=== PATIENT | female | born 1950 | race Hispanic/Latino ===

== ENCOUNTER → 2018-04-19 | Day surgery (SDC) | payer MEDICARE ==
[~2018-04-19] MED LIST: ANASTROZOLE1 MG PO; ATORVASTATIN CA20 MG PO; CALCIUM CARBONATE PO; JANUMET PO; LIDOCAINE HCL 2% LOCAL INJ 5 ML SDV VIAL INJ ONE; METFORMIN PO; MIDAZOLAM HCL 2 MG/2 ML VIAL ONE; PIOGLITAZONE PO; PROPOFOL IV EMULSION 10 MG/ML 20 ML VIAL ONE; SIMETHICONE 40 MG/0.6 ML BTL ONE
--- OUTSIDE RECORDS SUMMARY | 2018-04-19 08:02 | XMS REPORT | Summary of Care ---
Author Author [facility] Organization [facility] Address Unknown Phone Unavailable Encounter HQ Darrius_anjelica(SURENDRA) [id number] Date(s): 01/06/17 - 01/07/[address] [facility] [address] [place] [address]- Discharge Disposition: Home or Self Care Attending Physician: Sincere Yoder MD Admitting Physician: Sincere Yoder MD Referring Physician: Sincere Yoder MD Vital Signs 1 2 3 Most recent to oldest [Reference Range]: 121.92 cm (01/05/17 9:17 AM) Height 98.2 DegF (01/07/17 2:00 PM) 98.2 DegF (01/07/17 8:05 AM) 98.1 DegF (01/06/17 11:49 PM) Temperature Oral [96.4-99.1 DegF] 105/64 mmHg (01/07/17 2:00 PM) 114/72 mmHg (01/07/17 8:05 AM) 117/66 mmHg (01/06/17 11:49 PM) Blood Pressure [90-140/60-90 mmHg] 16 BRMIN (01/07/17 2:00 PM) 16 BRMIN (01/07/17 8:05 AM) 18 BRMIN (01/06/17 3:50 PM) Respiratory Rate [14-20 BRMIN] 78 bpm (01/07/17 2:00 PM) 69 bpm (01/07/17 8:05 AM) 77 bpm (01/06/17 11:49 PM) Peripheral Pulse Rate [60-100 bpm] 96.818 kg (01/05/17 9:17 AM) Weight 65.13 m2 (01/05/17 9:17 AM) Body Mass Index Problem List Condition Effective Dates Status Health Status Informant Diabetes(Confirmed) Resolved Hx of Active osteoarthritis(Confi rmed) H/O Active osteoporosis(Confirm ed) Hypercholesterolemia Active (Confirmed) Asthma(Confirmed) Resolved Allergies, Adverse Reactions, Alerts Substance Reaction Severity Status ibuprofen Active Medications acetaminophen (ANES) (ANES) Route: IV, Drug form: INJ, Start date: 01/06/17 9:46:00 CDT, Stop date: 01/06/17 10:46:00 CDT Start Date: 01/06/17 Stop Date: 01/06/17 Status: Completed albuterol (ANES) Route: IV, Drug form: AERO/A, ONCE, Stop date: 01/06/17 10:27:00 CDT Start Date: 01/06/17 Stop Date: 01/06/17 Status: Completed ANES fentaNYL 25 microgram, 0.5 mL, Route: IVP, Drug form: INJ, Q5Min, Dosing Weight 96.818, k g, PRN Pain Score 4-6, Priority: Routine, Start date: 01/06/17 9:53:00 CDT, Dura tion: 4 doses or times, Stop date: Limited # of times Notes: (Same as: Sublimaze) Preservative free. Start Date: 01/06/17 Stop Date: 01/06/17 Status: Discontinued ANES flumazenil 0.2 mg, 2 mL, Route: IVP, Drug form: INJ, PRN, Dosing Weight 96.818, kg, PRN [place] zodiazepine Reversal, Initial dose, Start date: 01/06/17 9:53:00 CDT, Duration: 30 day, Stop date: 02/05/17 9:52:00 CDT Notes: (Same as: Romazicon) Start Date: 01/06/17 Stop Date: 01/06/17 Status: Discontinued ANES hydrALAZINE 10 mg, 0.5 mL, Route: IVP, Drug form: INJ, Q20Min, Dosing Weight 96.818, kg, PRN Elevated BP, Start date: 01/06/17 9:53:00 CDT, Duration: 2 doses or times, Stop date: Limited # of times Start Date: 01/06/17 Stop Date: 01/06/17 Status: Discontinued ANES HYDROmorphone 0.5 mg, 0.5 mL, Route: IVP, Drug form: INJ, Q5Min, Dosing Weight 96.818, kg, PRN Pain Score 7-10, Start date: 01/06/17 12:53:00 CDT, Duration: 4 doses or times, Stop date: Limited # of times Notes: Same as: Dilaudid Start Date: 01/06/17 Stop Date: 01/06/17 Status: Discontinued ANES meperidine 12.5 mg, 0.5 mL, Route: IVP, Drug form: INJ, Q30Min, Dosing Weight 96.818, kg, P RN Other -See Comment, For shivering, Start date: 01/06/17 9:53:00 CDT, Duration : 2 doses or times, Stop date: Limited # of times Notes: (Same as: Demerol) "Use Precaution in Elderly, Seizure disorders, and Re nal impairment" Start Date: 01/06/17 Stop Date: 01/06/17 Status: Discontinued ANES metoprolol 1 mg, 1 mL, Route: IVP, Drug form: INJ, Q5Min, Dosing Weight 96.818, kg, PRN Oth er -See Comment, Start date: 01/06/17 9:53:00 CDT, Duration: 5 doses or times, S top date: Limited # of times Notes: (Same as: Lopressor)Push over 2 minutes Start Date: 01/06/17 Stop Date: 01/06/17 Status: Discontinued ANES morphine Sulfate 4 mg, 1 mL, Route: IVP, Drug form: SOLN, Q5Min, Dosing Weight 96.818, kg, PRN Pa in Score 7-10, Start date: 01/06/17 9:53:00 CDT, Duration: 3 doses or times, Sto p date: Limited # of times Notes: (Same as: MORPhine Sulfate) Start Date: 01/06/17 Stop Date: 01/06/17 Status: Discontinued ANES naloxone 0.1 mg, 0.25 mL, Route: SUB-Q, Drug form: INJ, Q6H, Dosing Weight 96.818, kg, VT N Itching, Start date: 01/06/17 9:53:00 CDT, Duration: 30 day, Stop date: 9:52:00 CDT Notes: Same as Narcan Start Date: 01/06/17 Stop Date: 01/06/17 Status: Discontinued ANES naloxone 0.4 mg, 1 mL, Route: IVP, Drug form: INJ, Q2MIN, Dosing Weight 96.818, kg, PRN N arcotic Reversal, Start date: 01/06/17 9:53:00 CDT, Duration: 8 doses or times, Stop date: Limited # of times Notes: Same as Narcan Start Date: 01/06/17 Stop Date: 01/06/17 Status: Discontinued ANES ondansetron 4 mg, 2 mL, Route: IVP, Drug form: INJ, ONCE, Dosing Weight 96.818, kg, PRN Naus ea & Vomiting, Start date: 01/06/17 9:53:00 CDT Notes: (Same as: Shorty) MEDICATION WASTE Product Size: 4 mgProduct Was michelle: ___ mg Start Date: 01/06/17 Stop Date: 01/06/17 Status: Discontinued atorvastatin 80 mg oral tablet 80 mg=1 tab, PO, Bedtime, # 30 tab, 0 Refill(s) Start Date: 01/05/17 Status: Ordered BD Normal Saline Flush 10 mL, Route: IV, Drug Form: INJ, PRN, PRN Line Flush, Start date: 01/06/17 6:00 :00 CDT, Duration: 30 day, Stop date: 02/05/17 5:59:00 CDT Notes: (Same as: BD Posiflush) Start Date: 01/06/17 Stop Date: 01/07/17 Status: Discontinued buffered lidocaine 1% INJ 0.1 mL, Route: INTRADERM, Drug Form: SOLN, Dosing Weight 96.818, kg, ONCALL, Sta rt date: 01/06/17 7:00:00 CDT, Duration: 1 doses or times Notes: Ingredients: 2 ml lidocaine 1% inj , 0.2ml sodium bicarbonate 8.4% inj total volume=2.2ml Refrigerate: 14 days Room temp: 7 days Start Date: 01/06/17 Stop Date: 01/06/17 Status: Completed ceFAZolin (ANES) Route: IV, Drug form: INJ, ONCE, Stop date: 01/06/17 9:57:00 CDT Start Date: 01/06/17 Stop Date: 01/06/17 Status: Completed ceFAZolin + sodium chloride 0.9% 100 mL INJ (for IV set) 100 mL 2 gm, Route: IVPB, PRE OP, Start date: 01/06/17 6:00:00 CDT, Duration: 1 doses o r times, Stop date: 01/06/17 18:00:00 CDT, ABX Indication: Surgical Prophylaxis Notes: (Same As: Merline Crandall) MEDICATION WASTE Product Size: 1000 mgP roduct Wasted: _0__ mg Start Date: 01/06/17 Stop Date: 01/07/17 Status: Discontinued dexamethasone (ANES) Route: IV, Drug form: INJ, ONCE, Stop date: 01/06/17 10:17:00 CDT Start Date: 01/06/17 Stop Date: 01/06/17 Status: Completed fentaNYL (ANES) Route: IV, Drug form: INJ, ONCE, Stop date: 01/06/17 10:17:00 CDT Start Date: 01/06/17 Stop Date: 01/06/17 Status: Completed furosemide 40 mg oral tablet 40 mg=1 tab, PO, Daily, 0 Refill(s) Start Date: 01/05/17 Status: Ordered glycopyrrolate (ANES) Route: IV, Drug form: INJ, ONCE, Stop date: 01/06/17 10:42:00 CDT Start Date: 01/06/17 Stop Date: 01/06/17 Status: Completed Lactated Ringers 1,000 mL 1,000 mL, Rate: 25 ml/hr, Infuse over: 40 hr, Route: IV, Dosing Weight 96.818 kg , Total Volume: 1,000, Start date: 01/06/17 6:08:00 CDT, Duration: 30 day, Stop date: 02/05/17 6:07:00 CDT Start Date: 01/06/17 Stop Date: 01/06/17 Status: Discontinued lidocaine (ANES) Route: IV, Drug form: INJ, ONCE, Stop date: 01/06/17 10:17:00 CDT Start Date: 01/06/17 Stop Date: 01/06/17 Status: Completed metFORMIN 500 mg oral tablet 500 mg=1 tab, PO, Bedtime, 0 Refill(s) Start Date: 01/05/17 Status: Ordered midazolam (ANES) Route: IV, Drug form: SOLN, ONCE, Stop date: 01/06/17 10:17:00 CDT Start Date: 01/06/17 Stop Date: 01/06/17 Status: Completed montelukast 10 mg oral tablet 20 mg=2 tab, PO, Daily, 0 Refill(s) Start Date: 01/05/17 Status: Ordered morphine Sulfate 4 mg, 1 mL, Route: IVP, Drug form: SOLN, Q4H, Dosing Weight 96.818, kg, PRN Pain Score 7-10, Start date: 01/06/17 12:15:00 CDT, Duration: 30 day, Stop date: 12:14:00 CDT Notes: (Same as: MORPhine Sulfate) Start Date: 01/06/17 Stop Date: 01/07/17 Status: Discontinued morphine Sulfate (ANES) Route: IV, Drug form: INJ, ONCE, Stop date: 01/06/17 10:22:00 CDT Start Date: 01/06/17 Stop Date: 01/06/17 Status: Completed neostigmine (ANES) Route: IV, Drug form: INJ, ONCE, Stop date: 01/06/17 10:42:00 CDT Start Date: 01/06/17 Stop Date: 01/06/17 Status: Completed [place] 5/325 oral tablet 2 tab, Route: PO, Drug Form: TAB, Dosing Weight 96.818, kg, Q4H, PRN Pain Score 4-6, Start date: 01/06/17 12:16:00 CDT, Duration: 30 day, Stop date: 02/05/17 12 :15:00 CDT Notes: (Same as: [place] 325/5) Do not exceed 4gm/day of acetaminophen. Start Date: 01/06/17 Stop Date: 01/07/17 Status: Discontinued [place] 5/325 oral tablet 2 tab, PO, Q4H, PRN for pain, X 7 day, # 40 tab, 0 Refill(s), given to patient Start Date: 01/07/17 Stop Date: 01/14/17 Status: Ordered omeprazole 20 mg oral enteric coated tablet 20 mg=1 tab, PO, Daily, 0 Refill(s) Start Date: 01/05/17 Status: Ordered ondansetron (ANES) Route: IV, Drug form: INJ, ONCE, Stop date: 01/06/17 10:17:00 CDT Start Date: 01/06/17 Stop Date: 01/06/17 Status: Completed propofol (ANES) Route: IV, Drug form: INJ, ONCE, Stop date: 01/06/17 10:17:00 CDT Start Date: 01/06/17 Stop Date: 01/06/17 Status: Completed rocuronium (ANES) Route: IV, Drug form: INJ, ONCE, Stop date: 01/06/17 10:17:00 CDT Start Date: 01/06/17 Stop Date: 01/06/17 Status: Completed sodium chloride 0.9% 1000 ml INJ (ANES) Route: IV, Total Volume: 1,000, Start date: 01/06/17 9:22:00 CDT, Stop date: 10:22:00 CDT Start Date: 01/06/17 Stop Date: 01/06/17 Status: Completed Sodium Chloride 0.9% IV 25 mL, Route: IV, Start date: 01/06/17 6:00:00 CDT, Duration: 30 day, Stop date: 02/05/17 5:59:00 CDT, PRN Line Flush Start Date: 01/06/17 Stop Date: 01/07/17 Status: Discontinued succinylcholine (ANES) Route: IV, Drug form: INJ, ONCE, Stop date: 01/06/17 10:17:00 CDT Start Date: 01/06/17 Stop Date: 01/06/17 Status: Completed Zofran 4 mg, 2 mL, Route: IVP, Drug form: INJ, Q4H, Dosing Weight 96.818, kg, PRN Nause a, Start date: 01/06/17 12:16:00 CDT, Duration: 30 day, Stop date: 02/05/17 12:1 5:00 CDT Notes: (Same as: Zofran) MEDICATION WASTE Product Size: 4 mgProduct Was michelle: ___ mg Start Date: 01/06/17 Stop Date: 01/07/17 Status: Discontinued Zofran 4 mg oral tablet 4 mg=1 tab, PO, Q4H, PRN Nausea/Vomiting, # 10 tab, 0 Refill(s), given to josef hobbs Start Date: 01/07/17 Stop Date: 01/15/17 Status: Ordered Results ELECTROLYTES Most recent to 1 oldest [Reference Range]: Sodium Lvl [135-145 138 mEq/L mEq/L] (01/06/17 6:11 AM) Potassium Lvl 4.1 mEq/L [3.5-5.1 mEq/L] (01/06/17 6:11 AM) SPECIAL CHEMISTRY Most recent to 1 oldest [Reference Range]: Hgb A1C [<=5.6 %] 7.5 % *HI* (01/06/17 6:11 AM) HEMATOLOGY Most recent to 1 oldest [Reference Range]: Hgb [12.0-16.0 g/dL] 12.8 g/dL (01/06/17 6:11 AM) Hct [36.0-48.0 %] 39.0 % (01/06/17 6:11 AM) Immunizations Given and Recorded Vaccine Date Status Refusal Reason pneumococcal 13-valent vaccine 01/07/17 Given Procedures Procedure Date Related Diagnosis Body Site Anterior repair Appendectomy Hysterectomy1 Vein procedure 1with bilateral oophorectomy Social History Social History Type Response Substance Abuse Use: None. Alcohol Never Smoking Status Never smoker; Exposure to Tobacco Smoke None; Cigarette Smoking Last 365 Days No; Reg Smoking Cessation Counseling No Assessment and Plan No data available for this section
--- OUTSIDE RECORDS SUMMARY | 2018-04-19 08:03 | XMS REPORT ---
Author Author [facility] Address Unknown Phone Unavailable Care Team Providers Care [facility] Attendant Name Role Phone Unavailable Unavailable Payers Payer Name Policy Type Policy Number Effective Date Expiration Date Problems This patient has no known problems. Allergies, Adverse Reactions, Alerts Allergy Name Allergy Type Status Severity Reaction(s) Onset Date Inactive Date Treating Clinician Comments No Known Allergies DA Active U 2016-01-22 00:00:00 Medications This patient has no known medications. Encounters Start Date/Time End Date/Time Encounter Type Admission Type Attending Clinicians [facility] Facility Care Department Encounter ID [id number] 01:09:12 2017-09-11 01:09:12 Emergency [facility] [id number] 2017-09-10 22:53:17 2017-09-10 22:53:17 Emergency [facility] [id number] 2017-09-10 21:54:51 2017-09-10 21:54:51 Emergency [facility] [id number]
[2018-04-19 09:15] LABS: BASOPHILS % 0.5 % (0.0-1.0); EOSINOPHILS # (AUTO) 0.2 (0.0-0.4); HEMATOCRIT 39.9 % (34.2-44.1); HEMOGLOBIN 12.8 g/dL (12.0-16.0); LYMPHOCYTES # (AUTO) 2.2 (1.0-3.2); LYMPHOCYTES % 28.8 % (18.0-39.1); MEAN CORPUSCULAR HEMOGLOBIN 27.7 pg (28-32); MEAN CORPUSCULAR HGB CONC 32.1 g/dL (31-35); MEAN CORPUSCULAR VOLUME 86.4 fL (81-99); MONOCYTES # (AUTO) 0.5 (0.2-0.8); MONOCYTES % 6.9 % (4.4-11.3); NEUTROPHILS # (AUTO) 4.7 (2.1-6.9); NEUTROPHILS % 60.4 % (38.7-80.0); PLATELET COUNT 162 x10e3/uL (140-360); RED BLOOD COUNT 4.62 x10e6/uL (3.6-5.1); RED CELL DISTRIBUTION WIDTH 15.2 % (11.7-14.4)
[2018-04-19 11:22] VITALS: BP 164/84
== END | disposition home or self-care (01) ==
LOC: OR 07:59
PROVIDERS: ATTEND Internal Medicine
DX: K92.1 Melena (principal); E11.9 Type 2 diabetes mellitus without complications; K63.5 Polyp of colon; K64.0 First degree hemorrhoids; C50.911 Malignant neoplasm of unspecified site of right female breast; J45.909 Unspecified asthma, uncomplicated; I83.90 Asymptomatic varicose veins of unspecified lower extremity; Z88.6 Allergy status to analgesic agent; Z79.84 Long term (current) use of oral hypoglycemic drugs; Z68.41 Body mass index [BMI] 40.0-44.9, adult; Z90.11 Acquired absence of right breast and nipple
CPT/HCPCS: 36415; 45380; 82948; 85025; 93005; J2001; J2250

== ENCOUNTER 2020-01-07 05:48 | Observation (INO) | payer MEDICARE, OTHER ==
[2020-01-02 11:46] LABS: BASOPHILS # (AUTO) 0.1 (0.0-0.1); BASOPHILS % 0.6 % (0.0-1.0); EOSINOPHILS # (AUTO) 0.3 (0.0-0.4); EOSINOPHILS % 3.7 % (0.0-6.0); HEMATOCRIT 40.1 % (34.2-44.1); HEMOGLOBIN 12.6 g/dL (12.0-16.0); LYMPHOCYTES # (AUTO) 2.6 (1.0-3.2); MEAN CORPUSCULAR HEMOGLOBIN 26.8 pg (28-32); MEAN CORPUSCULAR HGB CONC 31.4 g/dL (31-35); MEAN CORPUSCULAR VOLUME 85.1 fL (81-99); MONOCYTES # (AUTO) 0.5 (0.2-0.8); MONOCYTES % 5.3 % (4.4-11.3); NEUTROPHILS # (AUTO) 5.5 (2.1-6.9); NEUTROPHILS % 61.1 % (38.7-80.0); PLATELET COUNT 202 x10e3/uL (140-360); RED BLOOD COUNT 4.71 x10e6/uL (3.6-5.1); RED CELL DISTRIBUTION WIDTH 15.1 % (11.7-14.4)
[2020-01-02 12:11] LABS: ANION GAP 17.5 mmol/L (8-16); BLOOD UREA NITROGEN 18 mg/dL (7-26); BUN/CREATININE RATIO 25 (6-25); CALCIUM 9.1 mg/dL (8.4-10.2); CARBON DIOXIDE 23 mmol/L (22-29); CHLORIDE 105 mmol/L (98-107); CREATININE, SERUM 0.73 mg/dL (0.57-1.11); EST GLOMERULAR FILTRATION RATE > 60 ML/MIN (60-); GLUCOSE 136 mg/dL (74-118); POTASSIUM 4.5 mmol/L (3.5-5.1); SODIUM 141 mmol/L (136-145)
--- NOTE | 2020-01-02 12:26 | Diagnostic Imaging Report ---
EXAMINATION: CHEST 2 VIEWS INDICATION: Pre-operative COMPARISON: None FINDINGS: LINES/TUBES:None LUNGS:The lungs are moderately inflated. No focal consolidation or pulmonary edema. 4 mm right midlung calcified granuloma. PLEURA:No pleural effusion or pneumothorax. MEDIASTINUM:The cardiomediastinal silhouette appears normal in size and shape. BONES/SOFT TISSUES:No acute osseous injury. ABDOMEN:No free air under the diaphragm. IMPRESSION: No focal pneumonia or pulmonary edema. Signed by: Kolton León MD on 01/02/2020 12:23 PM
[~2020-01-07] VITALS: Ht 144.8 cm; Wt 90.7 kg
[~2020-01-07 05:48] MED LIST changes: +ADVIL100 M1 PO; +CALCIUM PO; -LIDOCAINE HCL 2% LOCAL INJ 5 ML SDV VIAL INJ ONE; +LINZESS145 MCG PO; -MIDAZOLAM HCL 2 MG/2 ML VIAL ONE; +MONTELUKAST SOD10 MG PO; +PIOGLITAZONE-M1 EACH PO; +PRAVACHOL40 MG PO; -PROPOFOL IV EMULSION 10 MG/ML 20 ML VIAL ONE; -SIMETHICONE 40 MG/0.6 ML BTL ONE
[2020-01-07] MEDS ORDERED: DEXAMETHASONE SOD PHOS 10 MG/1 ML VIAL ONE (06:04)
[2020-01-07] MEDS ORDERED: GABAPENTIN 300 MG CAP ONE (06:04)
[2020-01-07] MEDS ORDERED: CEFAZOLIN SOD 1 GM/NS 50ML 100 ML IV ONE (06:04)
[2020-01-07] MEDS ORDERED: CELECOXIB 200 MG CAP ONE (06:04)
[2020-01-07] MEDS ORDERED: TRANEXAMIC ACID 1,000 MG/10 ML ML ONE (06:27)
[2020-01-07] MEDS ORDERED: VANCOMYCIN HCL 500 MG ONE ×2 (06:27→06:47)
[2020-01-07] MEDS ORDERED: SODIUM CHLORIDE 0.9% 500ML 500 ML ONE (06:47)
[2020-01-07] MEDS ORDERED: ROPIVACAINE 246.25 MG, EPINEPHRINE HCL 1:1000 1ML 0.5 MG, CLONIDINE HCL 0.08 MG, KETORO... INJ ONE ×5 (08:00)
[2020-01-07] MEDS ORDERED: KETOROLAC TROMETHAMINE 30 MG/ML VIAL IV PRN (09:15)
[2020-01-07] MEDS ORDERED: DOCUSATE SODIUM 100 MG CAP PO PRN (09:15)
[2020-01-07] MEDS: SODIUM CHLORIDE 0.9% 1000ML 1,000 ML IV SCH ×2 (09:15→19:15)
[2020-01-07] MEDS ORDERED: ACETAMINOPHEN 650 MG SUPP PR PRN (09:15)
[2020-01-07] MEDS ORDERED: DIPHENHYDRAMINE HCL INJ 50 MG/ML VIAL IV PRN (09:15)
[2020-01-07] MEDS ORDERED: ONDANSETRON HCL INJ 2MG/ML 2ML 2 MG/ML VIAL IV PRN (09:15)
[2020-01-07] MEDS ORDERED: FENTANYL CITRATE/PF 100MCG/2 ML INJ ONE ×2 (09:41→13:50)
--- NOTE | 2020-01-07 09:50 | Operative Report ---
DATE OF PROCEDURE: 01/07/2020 SURGEON: Aki Harris MD ATG ARCHITECT: Hernandez Wall, certified PA. PREOPERATIVE DIAGNOSIS: Osteoarthritis, left knee. SECONDARY DIAGNOSIS: Morbid obesity. POSTOPERATIVE DIAGNOSES: 1. Osteoarthritis, left knee. 2. Morbid obesity. PROCEDURE: Left total knee arthroplasty * added complexity secondary to BMI of 44. INDICATIONS: The patient is a 69-year-old lady who has end-stage arthritis in her left knee. She has failed conservative management and would like to proceed with definitive intervention. The risks and benefits of a knee replacement surgery have been discussed. The added challenges and risks for perioperative complications due to her body mass index of 44 have been thoroughly explained. She states that she has made reasonable effort to lose weight and has been unsuccessful. She accepts the added challenges and risks for complications and wishes to proceed. PROCEDURE IN DETAIL: The patient was brought to the operating room and placed under general anesthetic. She received prophylactic antibiotics, a regional block and tranexamic acid in the holding area. Her left lower extremity was prepped and draped in a sterile manner. Added time and personnel was necessary due to the patient's BMI of 44. A preoperative time-out was performed. The extremity was exsanguinated and a proximal tourniquet was inflated to 350 mmHg. An anterior incision with a medial parapatellar arthrotomy was performed. Care was taken to avoid developing of space in the subcutaneous adipose tissue. Clear synovial fluid was removed from the joint. Soft tissue releases were performed to bring the knee up into flexion with the patella everted. Meniscal remnants, marginal osteophytes in the cruciate ligaments were removed. A [employer] Swrve knee system were used. An extramedullary cutting guide was used to resect the proximal tibia. The tibial base plate was a size three. The central fin punch was impacted and attention was directed towards the distal femur. Added challenges for good exposure were encountered in the altered surgical field. An intramedullary cutting guide was used to resect the distal femur in 5 degrees of valgus and rotation referencing off a combination of landmarks including Whitesides line, the epicondylar axis, and the posterior condyles. The femoral component was a size four. Again, some challenges were encountered and having appropriate exposure. The anterior and posterior cuts were made. Trial reduction was performed. An 11 mm ultracongruent tibial insert provided appropriate soft tissue balancing in full extension and 90 degrees of flexion. The patella was resurfaced with a 29 mm x 9 mm patellar button. The thickness was checked before and after resurfacing and was right around 22 mm. Patellar tracking was noted to be concentric. The trial implants were then all removed. The knee was thoroughly irrigated with a shower tip pulsatile lavage. A 100 mL premixed pericapsular CL[place]ON injection was placed into the surrounding soft tissue. The components were cemented into place using a single mix of high viscosity Biomet cement preloaded with antibiotics. Care was taken to remove all extravasated cement. The wound was further irrigated while the cement cured. The arthrotomy was then closed after sprinkling 500 mg of vancomycin powder into the deep wound. The arthrotomy was closed with interrupted Ethibond stitches. The knee was put through flexion and extension to ensure a secure closure. The skin was carefully closed with subcuticular Vicryl and shala. Her skin was very thin. A sterile Aquacel bandage was applied. The patient was extubated and transported to the recovery room in stable condition. Blood loss was minimal. All needle and sponge counts were correct. Aki Harris MD DR/KATE /[id number]
--- NOTE | 2020-01-07 10:08 | Diagnostic Imaging Report ---
KNEE LEFT 1-2 VIEWS - 2 views HISTORY: Postop COMPARISON: None available. IMPRESSION: Surgical changes of recent total knee replacement. The prosthesis is intact. Alignment is anatomic. No fracture. Expected surgical changes include soft tissue and joint space gas. Signed by: Carlitos Niño MD on 01/07/2020 10:05 AM
--- OUTSIDE RECORDS SUMMARY | 2020-01-07 10:21 | XMS REPORT | Continuity of Care Document ---
Author Author [facility] t Organization [facility] Address 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 11 Active 09/10/[address] [facility] [place] [place] Diagnosis Active 2018-09-10 08:00:00 2018-12-26 09:34:00 Henrique Goodson INTRADUCTAL CARCINOM INTR ADUCTAL CARCINOM Active 08/01/[address] 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 Disease Active 2017-09-10 00:00:00 Har[place] [id number] - MALIG NEOPLM OF UPPER-OUTER QU C50.411 - MALIG NEOPLM OF UPPER-OUTER QU Active 01/05/2017 [facility] Ac tive 2017-01-05 00:01:00 2017-02-12 15:39:00 [facility] MALIGNANT NEOPLASM OF UPPER-OUTER QUADRA MALIGNANT NEOPLASM OF UPPER-OUTER QUADRA Active 01/05/2017 [facility] Diagnosis Active 2017-01-05 00:00:00 2017-02-15 15:02:00 [facility] Diabetes mellitus, new onset Diabetes mellitus, new onset Disease Active 2013-09-17 00:00:00 [facility] Diabetes mellitus Diabetes mellitus Disease Active 2013-09-17 00:00:00 [facility] S/P colonoscopy with polypectomy S/P colonoscopy with polypectom y Disease Active 2013-05-29 00:00:00 [facility] Tubular adenoma Tubular adenoma Disease Active 2013-05-29 00:00:00 [facility] Varicose veins Varicose veins Disease Active 2013-02-22 00:00:00 [facility] Abnormal CT scan, sigmoid colon Abnormal CT scan, sigmoid colon Dis ease Active 2012-10-12 00:00:00 [facility] BRBPR (bright red blood per rectum) BRBPR (bright red blood per rectum) Disease Active 2012-10-09 00:00:00 [facility] Edema Edema Disease Active 2012-09-21 00:00:00 [facility] Ear pain Ear pain Disease Active 2012-09-21 00:00:00 [facility] Infective otitis externa, unspecified Infective otitis exter na, unspecified Disease Active 2012-09-21 00:00:00 [facility] 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 Disease Active 2012-01-17 00:00:00 [facility] Preventative health care Preventative health care Disease Acti ve 2012-01-17 00:00:00 [facility] S/P excision of lipoma S/P excision of lipoma Disease Active 2011-10-14 00:00:00 [facility] 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 Disea se Active 2011-08-08 00:00:00 [facility] Dietary counseling Dietary counseling Disease Active 2011-06-17 00:00:0 0 [facility] Lipoma of flank Lipoma of flank Disease Active 2011-05-25 00:00:00 [facility] Obesity, Class III, BMI 40-49.9 (morbid obesity) Obesi ty, Class III, BMI 40-49.9 (morbid obesity) Disease Active 2011-05-25 00:00:00 [facility] Rectocele Rectocele Disease Active 2010-03-17 00:00:00 [facility] Vaginal atrophy Vaginal atrophy Disease Active 2009-03-03 00:00:00 [facility] Elevated blood pressure reading without diagnosis of h ypertension Elevated blood pressure reading without diagnosis of hypertension Disease Active 2007-10-30 00:00:00 [facility] Stool guaiac positive Stool guaiac positive Disease Active 11-27-07 00:00:00 [facility] Personal history of noncompliance with m edical treatment, presenting hazards to health Personal history of noncompliance with m edical treatment, presenting hazards to health Disease Active 2007-06-22 00:00:00 [facility] Female stress incontinence Female stress incontinence Disease Active 2007-06-06 00:00:00 [facility] Asthma (disorder) Asth ma (disorder) Resolved Problem 07/10/2019 [facility] Problem Resolved 2019-07-10 22:49:25 Jeaneth Goodson History of - osteoarthritis (context-dependent categor y) History of - osteoarthritis (context-dependent category) Active Problem 07/10/2019 [facility] Problem Active 2019-07-10 22:49:25 Henrique Goodson History of - musculoskeletal disease (context-dependen t category) History of - musculoskeletal disease (context-dependent category) Active Problem 07/10/2019 [facility] Problem Active 2019-07-10 22:49:25 [facility] Hypercholesterolemia (disorder) Hypercholesterolemia (disorder) Active Problem 07/10/2019 [facility] Problem Active 2019-07-10 22:49:25 Henrique Goodson 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 Active Diagnosis 11/20/2018 Danica Barajas Diagnosis Active 2018-11-20 03 :11:38 Henrique Goodson Vitamin D deficiency Adrienne min D deficiency Active Problem 11/20/2018 Danica Najam Problem Active 2018-11-20 03:11:38 [facility] Pain in left knee Pain in left knee Active Diagnosis 11/20/2018 Danica Nagreg Diagnosis Active 2018-11-20 03:11:38 [facility] Pain in right hand Pain in right hand Active Diagnosis 11/20/2018 Danica Najam Diagnosis Active 2018-11-20 03:11:38 [facility] Pain in right knee Pain in right knee Active Diagnosis 11/20/2018 Danica Najam Diagnosis Active 2018-11-20 03:11:38 [facility] [place] Pain of multiple sites Pain of multiple sites Active Diagnosis 11/20/2018 Danica Najam Diagnosis Active 2018-11-20 03 :11:38 [facility] Pain of left hand Pain of left hand Active Diagnosis 11/20/2018 Danica Nagreg Diagnosis Active 2018-11-20 03:11:38 Henrique Goodson INTRADUCTAL CARCINOMA IN SITU OF 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 [place] [place] Diagnosis Active 2018-08-14 11:15:00 [facility] Osteoporoses, postmenopausal Osteoporoses, postmenopausal Disease Active [facility] GERD (gastroesophageal reflux disease) GERD (gastroesophagea l reflux disease) Disease Active [facility] Hyperlipidemia Hyperlipidemia Disease Active [facility] Elevated CEA Elevated CEA Disease Active [facility] Elevated glucose Elevated glucose Disease Active [facility] Allergies, Adverse Reactions, Alerts Allergy Name Allergy Type Status Severity Reaction(s) Onset Date Inacti ve Date Treating Clinician Comments Source N.K.D.A. N.K.D.A. Active Info Not Available 2018-08-28 00:00:00 [facility] [place] No Known Allergies DA Active U 2016-01-22 00:00:00 [facility] ibuprofen ibuprofen Active Igormillie Goodson Family History Family Member Diagnosis Comments Start Date Stop Date Source Natural father [facility] Maternal aunt [facility] Natural mother [facility] Natural mother [facility]pert[facility] Other Hypothyroid [facility] Social History Social Habit Start Date Stop Date Quantity Comments Source Sex Assigned [facility] Social History 2017-01-05 14:39:03 2017-01-05 14:39:03 [facility] Alcohol intake 2015-03-18 00:00:00 2015-03-18 00:00:00 Current non-drinker of alcohol (finding) [facility] Smoking Status Start Date Stop Date Source Never smoker [facility] Medications Ordered Medication Name Filled Medication Name Start Date Stop Da te Current Medication? Ordering Clinician Indication Dosage Frequency Signature (SIG) Comments Components Source Atorvastatin Calcium 2018-11-20 03:11:38 Yes Danica Najam 1 tablet [facility] Metformin HCl 2018-11-20 03:11:38 Yes Danica Najam 1 tablet with a meal [facility] Anastrozole 2018-11-20 03:11:38 Yes Danica Najam 1 tablet [facility] Calcium 2018-11-20 03:11:38 Yes Danica Najam 1 ta blet with a meal [facility] Ergocalciferol 2018-09-11 00:00:00 Yes Danica Najam 1 capsule [facility] Meloxicam 2018-08-31 00:00:00 Yes Danica Najam 1 tab(s) with food as needed [facility] acetaminophen (TYLENOL) 500 mg tablet 2017-09-11 00:00:00 Yes Chronic midline thoracic back pain 500mg Take 1 tablet by mouth every 6 hours as needed for Pain. [facility] Ondansetron 4 MG Oral Tablet [Zofran] 2017-01-07 13:21:00 Y es 4 mg = 1 tab, PO, Q4H, PRN Nausea/Vomiting, # 10 tab, 0 Refill(s), given to patient [facility] Acetaminophen 325 MG / Hydrocodone Bitartrate 5 MG Oral Tabl et [Pocola 5/325] 2017-01-07 13:21:00 Yes 2 tab, PO, Q4H, PRN for pain, X 7 day, # 40 tab, 0 Refill(s), given to patient Isisor mary jane Goodson Hydromorphone 2017-01-06 17:53:00 No Notes: Same as: Dilaudid [facility] Zofran 2017-01-06 17:16:00 No Notes: (Same as: Zofran) MEDICATION WASTE Product Size: 4 mg Product Wasted: ___ mg [facility] Acetaminophen 325 MG / Hydrocodone Bitartrate 5 MG Oral Tabl et [Pocola 5/325] 2017-01-06 17:16:00 No Notes: (Same as: Pocola 325/5) Do not exceed 4gm/day of acetaminophen. [facility] nn Morphine 2017-01-06 17:15:00 No Not es: (Same as: MORPhine Sulfate) [facility] glycopyrrolate ([facility]) 2017-01-06 15:42:00 No Route: IV, Drug form: INJ, ONCE, Stop date: 01/06/17 10:42:00 CDT [facility] neostigmine (ANES) 2017-01-06 15:42:00 No Route: IV, Drug form: INJ, ONCE, Stop date: 01/06/17 10:42:00 CDT [facility] albuterol (ANES) 2017-01-06 15:27:00 No Route: IV, Drug form: AERO/A, ONCE, Stop date: 01/06/17 10:27:00 CDT [facility] morphine Sulfate ([facility]) 2017-01-06 15:22:00 No Route: IV, Drug form: INJ, ONCE, Stop date: 01/06/17 10:22:00 CDT [facility] dexamethasone ([facility]) 2017-01-06 15:17:00 No Route: IV, Drug form: INJ, ONCE, Stop date: 01/06/17 10:17:00 CDT [facility] rocuronium ([facility]) 2017-01-06 15:17:00 No Route: IV, Drug form: INJ, ONCE, Stop date: 01/06/17 10:17:00 [facility] succinyl[facility] ([facility]) 2017-01-06 15:17:00 No Route: IV, Drug form: INJ, ONCE, Stop date: 01/06/17 10:17:00 CDT [facility] midazolam ([facility]) 2017-01-06 15:17:00 No Route: IV, Drug form: SOLN, ONCE, Stop date: 01/06/17 10:17:00 [facility] fentaNYL ([facility]) 2017-01-06 15:17:00 No Route: IV, Drug form: INJ, ONCE, Stop date: 01/06/17 10:17:00 [facility]ocaine ([facility]) 2017-01-06 15:17:00 No Route: IV, Drug form: INJ, ONCE, Stop date: 01/06/17 10:17:00 CDT Cornel Goodson propofol (ANES) 2017-01-06 15:17:00 No Route: IV, Drug form: INJ, ONCE, Stop date: 01/06/17 10:17:00 CDT Cornel Goodson ondansetron ([facility]) 2017-01-06 15:17:00 No Route: IV, Drug form: INJ, ONCE, Stop date: 01/06/17 10:17:00 CDT Cornel Goodson ceFAZolin ([facility]) 2017-01-06 14:57:00 No Route: IV, Drug form: INJ, ONCE, Stop date: 01/06/17 9:57:00 CDT Wi polly Goodson Meperidine 2017-01-06 14:53:00 No Notes: (Same as: Demerol) "Use Precaution in Elderly, Seizure disorders, and Renal impairment" [facility] Naloxone 2017-01-06 14:53:00 No Notes: Same as Narcan [facility] Ondansetron 2017-01-06 14:53:00 No Notes: (Same as: Zofran) MEDICATION WASTE Product Size: 4 mg Product Wasted: ___ mg [facility] Fentanyl 2017-01-06 14:53:00 No Notes: (Same as: Sublimaze) Preservative free. [facility] Morphine 2017-01-06 14:53:00 No Not es: (Same as: MORPhine Sulfate) [facility] Flumazenil 2017-01-06 14:53:00 No Notes: (S sheryl as: Romazicon) [facility] Hydralazine 2017-01-06 14:53:00 No 10 mg, 0.5 mL, Route: IVP, Drug form: INJ, Q20Min, Dosing Weight 96.818, kg, PRN Elevated BP, Start date: 01/06/17 9:53:00 CDT, Duration: 2 doses or times, Stop date: Limited # of times [facility] Metoprolol 2017-01-06 14:53:00 No Notes: (Same as: Lopressor) Push over 2 minutes Henrique Goodson acetaminophen (MELISSAS) (ANES) 2017-01-06 14:46:00 No Route: IV, Drug form: INJ, Start date: 01/06/17 9:46:00 CDT, Stop date: 01/06/17 10:46:00 CDT [facility] sodium chloride 0.9% 1000 ml INJ (ANES) 2017-01-06 14:22:00 No Route: IV, Total Volume: 1,000, Start date: 01/06/17 9:22:00 CDT, Stop date: 01/06/17 10:22:00 CDT [facility] Lidocaine 2017-01-06 12:00:00 No Notes: Ingredients: 2 ml lidocaine 1% inj , 0.2ml sodium bicarbonate 8.4% inj total volume = 2.2ml Refrigerate: 14 days Room temp: 7 days [facility] Calcium Chloride 0.0014 MEQ/ML / Potassi um Chloride 0.004 MEQ/ML / Sodium Chloride 0.103 MEQ/ML / Sodium Lactate 0.028 MEQ/ML Injectable Solution 2017-01-06 11:08:00 No 1,000 mL, Rate: 25 ml/hr, Infuse over: 40 hr, Route: IV, Dosing Weight 96.818 kg, Total Volume: 1,000, Start date: 01/06/17 6:08:00 CDT, Duration: 30 day, Stop date: 02/05/17 6:07:00 CDT [facility] Sodium Chloride 0.9% IV 2017-01-06 11:00:00 No 25 mL, Route: IV, Start date: 01/06/17 6:00:00 CDT, Duration: 30 day, Stop date: 02/05/17 5:59:00 CDT, PRN Line Flush [facility] BD Normal Saline Flush 2017-01-06 11:00:00 No Notes: (Same as: BD Posiflush) [facility] ceFAZolin + sodium chloride 0.9% 100 mL INJ (for IV set) 100 mL 2017-01-06 11:00:00 No Notes: (Sa me As: Ancef, Kefzol) MEDICATION WASTE Product Size: 1000 mg Product Wasted: _0__ mg [facility] Furosemide 40 MG Oral Tablet 2017-01-05 14:24:00 Yes 40 mg = 1 tab, PO, Daily, 0 Refill(s) [facility] montelukast 10 mg oral tablet 2017-01-05 14:23:00 Yes 20 mg = 2 tab, PO, Daily, 0 Refill(s) [facility] atorvastatin 80 mg oral tablet 2017-01-05 14:22:00 Yes 80 mg = 1 tab, PO, Bedtime, # 30 tab, 0 Refill(s) [facility] omeprazole 20 mg oral enteric coated tablet 2017-01-05 14:22:00 Yes 20 mg = 1 tab, PO, Daily, 0 Refill(s) [facility] [place] Metformin hydrochloride 500 MG Oral Tablet 2017-01-05 14:21:00 Yes 500 mg = 1 tab, PO, Bedtime, 0 Refill(s) [facility] traMADol (ULTRAM) 50 mg tablet 2014-03-18 00:00:00 Yes DDD (degenerative disc disease), lumbar 50mg Take 1 tablet by m outh every 12 hours as needed for Pain. [facility] lactulose (CONSTULOSE) 10 gram/15 mL oral solution 2014-02 00:00:00 Yes Unspecified constipation Take 30 ml by mouth twice daily until bowel movement. [facility] omeprazole (PRILOSEC) 20 mg delayed release capsule 2013-04 00:00:00 Yes GERD (gastroesophageal reflux disease) 20mg QD Ta ke 1 capsule by mouth daily. [facility] simvastatin (ZOCOR) 40 mg tablet 2014-03-18 00:00:00 Yes HLD (hyperlipidemia) 40mg Take 1 tablet by mouth at bedtime nightly . [facility] cetirizine (ZYRTEC) 10 mg tablet 2014-02-07 00:00:00 Yes Environmental allergies 10mg QD Take 1 tablet by mouth daily. [facility] cyclobenzaprine (FLEXERIL) 10 mg tablet 2014-02-07 00:00:00 Yes Encounter for medication refill 10mg Take 1 tablet by m outh daily as needed for Muscle Spasms. [facility] piroxicam (FELDENE) 20 mg capsule 2014-02-07 00:00:00 Yes Encounter for medication refill 20mg QD Take 1 capsule by mouth daily. [facility] ergocalciferol (VITAMIN D2) 50,000 unit capsule 2014-01-02 0 0:00:00 Yes Vitamin D deficiency [id number] Take 1 capsule by mouth weekly. [facility] Mometasone (NASONEX) 50 mcg/actuation nasal spray 2014-01-02 00:00:00 Yes Post-Nasal Drip 100ug QD 2 Sprays by each nostril route daily. [facility] hydrocortisone 2.5 % topical cream 2013-10-16 00:00:00 Y es Dermatitis Q.5D Apply to affected area 2 times daily. [facility] metFORMIN (GLUCOPHAGE-XR) 500 mg ER extended release tablet 2013-09-17 00:00:00 Yes Diabetes mellitus 500mg QD Ta ke 1 tablet by mouth daily (with breakfast). [facility] blood glucose meter (PRECISION XTRA GLUCOMETER) 2013-09-17 0 0:00:00 Yes Diabetes mellitus, new onset Use as directed.. [facility] blood glucose (PRECISION XTRA TEST STRIPS) test strips 2013-09-17 00:00:00 Yes Diabetes mellitus Use 3 times a weeks. [facility] lancets 28 gauge 2013-09-17 00:00:00 Yes Diabetes mellitus USE 3 VECES POR SEMANA [facility] gabapentin (NEURONTIN) 300 mg capsule 2013-08-13 00:00:00 Yes Burning sensation of feet 300mg Take 1 capsule by mouth at bedtime night ly. [facility] OPTIVAR 0.05 % ophthalmic solution 2013-07-23 00:00:00 Yes PONGA 1 GOTA EN CADA JILL 2 VECES DIARIAMENTE. [facility] alendronate (FOSAMAX) 35 mg tablet 2013-05-29 00:00:00 Y es Osteopenia 35mg Take 1 tablet by mouth weekly. [facility] ibuprofen (MOTRIN) 800 mg tablet 2012-12-11 00:00:00 Yes Plantar fasciitis 800mg Take 1 tablet by jared th every 8 hours as needed for Pain. Label in French [facility] Immunizations Ordered Immunization Name Filled Immunization Name Date Status Comments Source PPV 23 Pneumococcal Polysaccaride 2014-03-18 00:00:00 Comp leted [facility] Influenza Vaccine 2011-05-25 00:00:00 Completed [facility] Influenza Vaccine 2010-03-24 00:00:00 Completed [facility] Vital Signs Vital Name Observation Time Observation Value Comments Source Height 2018-09-11 16:45:00 Henrique Goodson Diastolic (mm Hg) 2018-09-11 16:45:00 [facility] leida Goodson Systolic (mm Hg) 2018-09-11 16:45:00 I[facility] Mccordann Weight 2018-09-11 16:45:00 [facility] Height 2018-08-28 16:00:00 [facility] [place] Diastolic (mm Hg) 2018-08-28 16:00:00 [facility] Systolic (mm Hg) 2018-08-28 16:00:00 Igor rial [facility] Weight 2018-08-28 16:00:00 [facility] [place] Height 2018-08-14 18:00:00 144.78 cm [facility] [place] Heart Rate 2018-08-14 18:00:00 [facility] [place] Systolic (mm Hg) 2018-08-14 18:00:00 Igor rial [place] Diastolic (mm Hg) 2018-08-14 18:00:00 [facility] Height 2018-08-14 16:11:00 144.78 cm [facility] [place] Systolic (mm Hg) 2018-08-14 16:11:00 Igor rial [facility]zah Diastolic (mm Hg) 2018-08-14 16:11:00 Mem [facility] [place] Heart Rate 2018-08-14 16:11:00 [facility] Systolic (mm Hg) 2017-01-07 19:00:00 Igor rial [facility] Diastolic (mm Hg) 2017-01-07 19:00:00 Mem [facility] [place] Heart Rate 2017-01-07 19:00:00 [facility] [place] Respitory Rate 2017-01-07 19:00:00 [facility]ori [facility] [place] Temperature Oral (F) 2017-01-07 19:00:00 98.2 F [facility] Heart Rate 2017-01-07 13:05:00 [facility] [place] Temperature Oral (F) 2017-01-07 13:05:00 98.2 F [facility] Systolic (mm Hg) 2017-01-07 13:05:00 Igor rial [place] Diastolic (mm Hg) 2017-01-07 13:05:00 [facility] Respitory Rate 2017-01-07 13:05:00 [facility] Temperature Oral (F) 2017-01-07 04:49:00 98.1 F [facility] Heart Rate 2017-01-07 04:49:00 [facility] Systolic (mm Hg) 2017-01-07 04:49:00 Igor rial [facility] Diastolic (mm Hg) 2017-01-07 04:49:00 [facility] Respitory Rate 2017-01-06 20:50:00 [facility] [place] Weight 2017-01-05 14:17:00 [facility] Height 2017-01-05 14:17:00 121.92 cm [facility] BMI Calculated 2017-01-05 14:17:00 Constance Reyes Procedures Procedure Date / Time Performed [facility]forming [facility] Appendectomy [facility] Hysterectomy<sup>1</sup> Tin wahl [facility] Vein procedure [facility] Plan of Care Planned Activity Planned Date Details Comments Source [facility] Scheduled Test 2020-09-20 00:00:00 BREAST CANCER SCRE ENING [code = BREAST CANCER SCREENING] [facility] Scheduled Test 2020-01-23 00:00:00 INFLUENZA VACCINE [code = INFLUENZA VACCINE] [facility] Scheduled Test 2020-01-23 00:00:00 IMM Influenza Seas onal Jan to June (>/= 19 yrs) [code = IMM Influenza Seasonal Jan to June (>/= 19 yrs)] [facility] Scheduled Test 2018-05-03 00:00:00 Screening for lucila gnant neoplasm of colon (procedure) [code = 469401457] [facility] Scheduled Test 2014-10-16 00:00:00 DM Foot Exam (Year ly) [code = DM Foot Exam (Yearly)] [facility] Scheduled Test 2014-09-17 00:00:00 Urine screening fo r protein (procedure) [code = 118169784] [facility] Scheduled Test 2014-09-17 00:00:00 DM Retinal Exam (Y early) [code = DM Retinal Exam (Yearly)] [facility] Scheduled Test 2014-08-20 00:00:00 Hemoglobin A1c primo surement (procedure) [code = 06990906] [facility] Scheduled Test 2014-08-13 00:00:00 Breast Cancer Scrn (Yearly) [code = Breast Cancer Scrn (Yearly)] [facility] Scheduled Test 2014 00:00:00 65+ PNEUMOCOCCAL V ACCINE (1 of 2 - PCV13) [code = 65+ PNEUMOCOCCAL VACCINE (1 of 2 - PCV13)] [facility] Scheduled Test 2014 00:00:00 IMM Pneumococcal A ge 65 and Up [code = IMM Pneumococcal Age 65 and Up] [facility] Scheduled Test 1999 00:00:00 COLONOSCOPY SCREEN ING [code = COLONOSCOPY SCREENING] [facility] Scheduled Test 1999 00:00:00 SHINGLES VACCINES (#1) [code = SHINGLES VACCINES (#1)] [facility] Encounters Start Date/Time End Date/Time Encounter Type Admission Type [facility] Care Department Encounter ID Source 2018-09-10 15:29:04 Outpatient [facility] [id number] 2019-07-08 10:32:00 2019-07-08 23:59:00 Outpatient Alanis Allison Trevino [id number] 2018-08-14 11:04:00 2018-09-12 23:59:00 Outpatient Allison Thapa [facility] [id number] 2018-09-11 11:45:00 2018-09-11 11:45:00 Outpatient [facility] [id number] [facility] 2018-08-30 14:02:00 2018-08-30 14:02:00 Outpatient [facility] [id number] [facility] 2018-08-28 11:00:00 2018-08-28 11:00:00 Outpatient [facility] [id number] [facility] 2018-08-14 11:04:00 2018-08-14 11:04:00 Outpatient [facility] [id number] [facility] 2017-09-11 01:09:12 2017-09-11 01:09:12 Emergency [facility] [id number] [facility] 2017-09-10 22:53:17 2017-09-10 22:53:17 Emergency [facility] [id number] [facility] 2017-09-10 21:54:51 2017-09-10 21:54:51 Emergency [facility] [id number] [facility] 2017-01-06 05:11:32 2017-01-07 16:09:00 Outpatient [facility] [id number] Results Test Description Test Time Test Comments Results Result Comments Source KNEE LEFT 1-2 VIEWS 2020-01-07 10:01:00 [place] [address] Patient Name: CLAU STAHL MR #: [id number] : 1950 Age/Sex: 69/F Req #: [id number] Adm Physician: Ordered by: SUSAN KWON MD Report #: [id number] Location: OR Room/Bed: Procedure: [id number] DX/KNEE LEFT 1-2 VIEWS Exam Date: 01/07/20 Exam Time: 949 REPORT STATUS: Signed KNEE LEFT 1-2 VIEWS - 2 views HISTORY: Postop COMPARISON: None available. IMPRESSION: Surgical changes of recent total knee replacement. The prosthesis is intact. Alignment is anatomic. No fracture. Expected surgical changes include soft tissue and joint space gas. Signed by: Richelle Wild MD on 01/07/2020 10:05 AM Dictated By: RICHELLE WILD MD 1005 Transcribed By: TERRIE on 01/07/20 1005 COPY TO: SUSAN KWON MD CHEST 2 VIEWS 2020-01-02 12:22:00 [place] [address] Patient Name: CLAU STAHL MR #: [id number] : 1950 Age/Sex: 69/F Req #: [id number] Adm Physician: Ordered by: SUSAN KWON MD Report #: [id number] Location: OR Room/Bed: Procedure: [id number] DX/CHEST 2 VIEWS Exam Date: 01/02/20 Exam Time: 1150 REPORT STATUS: Signed EXAMINATION: CHEST 2 VIEWS INDICATION: Pre-operative COMPARISON: None FINDINGS: LINES/TUBES:None LUNGS:The lungs are moderately inflated. No focal consolidation or pulmonary edema. 4 mm right midlung calcified granuloma. PLEURA:No pleural effusion or pneumothorax. MEDIASTINUM:The cardiomediastinal silhouette appears normal in size and shape. BONES/SOFT TISSUES:No acute osseous injury. ABDOMEN:No free air under the diaphragm. IMPRESSION: No focal pneumonia or pulmonary edema. Signed by: Lorraine Layne MD on 01/02/2020 12:23 PM Dictated By: LORRAINE LAYNE MD 1223 Transcribed By: TERRIE on 01/02/20 1223 COPY TO: SUSAN KWON MD ELECTROLYTES 2017-01-06 11:11:00 138 [facility] leida Goodson ELECTROLYTES 2017-01-06 11:11:00 4.1 [facility] leida Goodson HEMATOLOGY 2017-01-06 11:11:00 [facility] 2017-01-06 11:11:00 [facility] 2017-01-06 11:11:00 7.5 [facility] Hamzah
--- OUTSIDE RECORDS SUMMARY | 2020-01-07 10:21 | XMS REPORT | Clinical Summary ---
Author Author [facility] Organization [place] [facility] Address Unknown Phone Unavailable Care Team Providers Care Car Hostler Name Role Phone Russell Connors MD PCP Allergies Not on File Medications Not on file Active Problems Not on file Social History Date Tobacco Use Types Packs/Day Years Used Never Assessed Sex Assigned at Date Recorded Not on file Industry Job Start Date Occupation Not on file Not on file Not on file Travel End Travel History Travel Start No recent travel history available. Last Filed Vital Signs Not on file Plan of Treatment Health Maintenance Due Date Last Done Comments COLONOSCOPY SCREENING 1999 SHINGLES VACCINES (#1) 1999 65+ PNEUMOCOCCAL VACCINE 2014 (1 of 2 - PCV13) INFLUENZA VACCINE 01/23/2020 BREAST CANCER SCREENING 09/20/2020 09/20/2018 Results Not on fileafter 01/06/2019 Insurance Type Payer Benefit Subscriber ID Effective Phone Address Plan / Dates Group HMO CIGNA [employer]ING CIGNA xxxxxxxx 2018-P HEALTHSPRI resent NG HMO MCR ADV Commercial COMMERCIAL MISC MISC xxxxxxxx 2018-P COMMERCIAL resent HMO [facility] MEDICAID [facility] xxxxxxxxx 2018-P COMM STAR+ resent OTILIA 353 [id number] Advance Directives For more information, please contact: [phone] Patient General Supervisor Explanation Type Date Recorded Advance Directives, Living Will and Medical Power of Truss Assembler
--- OUTSIDE RECORDS SUMMARY | 2020-01-07 10:21 | XMS REPORT | Continuity of Care Document ---
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 Diabetes mellitus (disorder) R esolved Problem [facility] History of - osteoarthritis (context-dep endent category) Active Prob saniya 07/10/2019 [facility] History of - musculoskeletal disease (co ntext-dependent category) Active Prob saniya 07/10/2019 [facility] Hypercholesterolemia (disorder) Active Problem [facility] Asthma (disorder) Resolved Problem 07/10/2019 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 Acetaminophen 325 MG / Hydrocodone Neymar trate 5 MG Oral Tablet [[place] 5/325] 2 tab, PO, Q4H, PRN for pain, X 7 day, # 40 tab, 0 Refill(s), given to patient Active 01/07/[address] [facility] Hydromorphone Notes: Same as: Dilaudid Inactive 01/06/[address] [facility] Zofran Notes: (Same as: Zofran ) MEDICATION WASTE Product Size: 4 mg Product Wasted: ___ mg No Longer Active 01/06/[address] [facility] Acetaminophen 325 MG / Hydrocodone Neymar trate 5 MG Oral Tablet [[place] 5/325] Notes: (Same as: [place] 325/5) Do not ex ceed 4gm/day of acetaminophen. No Longer Activ e 01/06/[address] [facility] Morphine Notes: (Same as: MORP kwame Sulfate) No Longer Active 01/06/[address] [facility] glycopyrrolate (ANES) Route: I V, Drug form: INJ, ONCE, Stop date: 01/06/17 10:42:00 CDT Inactive 01/06/[address] [facility] neostigmine (ANES) Route: IV, Drug form: INJ, ONCE, Stop date: 01/06/17 10:42:00 CDT Inactive 01/06/[address] [facility] albuterol (ANES) Route: IV, Dr ug form: AERO/A, ONCE, Stop date: 01/06/17 10:27:00 CDT Inactive 01/06/[address] [facility] morphine Sulfate (ANES) Route: IV, Drug form: INJ, ONCE, Stop date: 01/06/17 10:22:00 CDT Inactive 01/06/[address] [facility] dexamethasone (ANES) Route: IV , Drug form: INJ, ONCE, Stop date: 01/06/17 10:17:00 CDT Inactive 01/06/[address] [facility] rocuronium (ANES) Route: IV, D rug form: INJ, ONCE, Stop date: 01/06/17 10:17:00 CDT Inactive 01/06/[address] [facility] succinylcholine (ANES) Route: IV, Drug form: INJ, ONCE, Stop date: 01/06/17 10:17:00 CDT Inactive 01/06/[address] [facility] midazolam (ANES) Route: IV, Dr ug form: SOLN, ONCE, Stop date: 01/06/17 10:17:00 CDT Inactive 01/06/[address] [facility] fentaNYL (ANES) Route: IV, Orestes g form: INJ, ONCE, Stop date: 01/06/17 10:17:00 CDT Inactive 01/06/[address] [facility] lidocaine (ANES) Route: IV, Dr ug form: INJ, ONCE, Stop date: 01/06/17 10:17:00 CDT Inactive 01/06/[address] [facility] propofol (ANES) Route: IV, Orestes g form: INJ, ONCE, Stop date: 01/06/17 10:17:00 CDT Inactive 01/06/[address] [facility] ondansetron (ANES) Route: IV, Drug form: INJ, ONCE, Stop date: 01/06/17 10:17:00 CDT Inactive 01/06/[address] [facility] ceFAZolin (ANES) Route: IV, Dr ug form: INJ, ONCE, Stop date: 01/06/17 9:57:00 CDT Inactive 01/06/[address] [facility] Meperidine Notes: (Same as: [place]) "Use Precaution in Elderly, Seizure disorders, and Renal impairment" Inactive 01/06/[address] [facility] Naloxone Notes: Same as Narcan Inactive 01/06/[address] [facility] Ondansetron Notes: (Same as: Lucas davis) MEDICATION WASTE Product Size: 4 mg Product Wasted: ___ mg Inactive 01/06/[address] [facility] Fentanyl Notes: (Same as: Subl imaze) Preservative free. Inactive 01/06/[address] [facility] Morphine Notes: (Same as: MORP kwame Sulfate) Inactive 01/06/[address] [facility] Flumazenil Notes: (Same as: Ro mazicon) Inactive 01/06/[address] [facility] Hydralazine 10 mg, 0.5 mL, Rou te: IVP, Drug form: INJ, Q20Min, Dosing Weight 96.818, kg, PRN Elevated BP, Start date: 01/06/17 9:53:00 CDT, Duration: 2 doses or times, Stop date: Limited # of times Inactive 01/06/[address] [facility] Metoprolol Notes: (Same as: Lo pressor) Push over 2 minutes Inactive 01/06/[address] [facility] acetaminophen (ANES) (ANES) Ro jody: IV, Drug form: INJ, Start date: 01/06/17 9:46:00 CDT, Stop date: 01/06/17 10:46:00 CDT Inactive 01/06/[address] [facility] sodium chloride 0.9% 1000 ml INJ (ANES) Route: IV, Total Volume: 1,000, Start date: 01/06/17 9:22:00 CDT, Stop date: 01/06/17 10:22:00 CDT Inactive 01/06/[address] [facility] Lidocaine Notes: Ingredients: 2 ml lidocaine 1% inj , 0.2ml sodium bicarbonate 8.4% inj total volume = 2.2ml Refrigerate: 14 days Room temp: 7 days Inactive 01/06/[address] [facility] Calcium Chloride 0.0014 MEQ/ML / Potassi um Chloride 0.004 MEQ/ML / Sodium Chloride 0.103 MEQ/ML / Sodium Lactate 0.028 MEQ/ML Injectable Solution 1,000 mL, Rate: 25 ml/hr, Infuse over: 4 0 hr, Route: IV, Dosing Weight 96.818 kg, Total Volume: 1,000, Start date: 01/06/17 6:08:00 CDT, Duration: 30 day, Stop date: 02/05/17 6:07:00 CDT Inactive 01/06/[address] [facility] Sodium Chloride 0.9% IV 25 mL, Route: IV, Start date: 01/06/17 6:00:00 CDT, Duration: 30 day, Stop date: 02/05/17 5:59:00 CDT, PRN Line Flush No Longer Active 01/06/[address] [facility] BD Normal Saline Flush Notes: (Same as: BD Posiflush) No Longer Active 01/06/[address] [facility] ceFAZolin + sodium chloride 0.9% 100 mL INJ (for IV set) 100 mL Notes: (Same As: Merline Crandall) M EDICATION WASTE Product Size: 1000 mg Product Wasted: _0__ mg No Longer Active 01/06/[address] [facility] Furosemide 40 MG Oral Tablet 4 0 mg = 1 tab, PO, Daily, 0 Refill(s) Active 01/05/[address] [facility] montelukast 10 mg oral tablet 20 mg = 2 tab, PO, Daily, 0 Refill(s) Active 01/05/[address] [facility] atorvastatin 80 mg oral tablet 80 mg = 1 tab, PO, Bedtime, # 30 tab, 0 Refill(s) Active 01/05/[address] [facility] omeprazole 20 mg oral enteric coated tablet 20 mg = 1 tab, PO, Daily, 0 Refill(s) Active 01/05/[address] [facility] Metformin hydrochloride 500 MG Oral Tablet 500 mg = 1 tab, PO, Bedtime, 0 Refill(s) Active 01/05/[address] [facility] Atorvastatin Calcium 1 tablet Orally Active 80 MG Orally [facility] Metformin HCl 1 tablet with a meal Orally Active 500 MG Orally Once a day Najam Danica Najam Anastrozole 1 tablet Orally Active 1 MG Orally Once a day [place] n Najam Calcium 1 tablet with a meal Orally Active 2894-3761 MG-UNIT Orally Once a day Najam Danica Najam Allergies, Adverse Reactions, Alerts Substance Category Reaction Severity Reaction type Status Date Reported Comments Source N.K.D.A. Adverse Reaction Info Not Available Adverse Reaction Active 08/28/2018 Danica Barajas ibuprofen Assertion Drug allergy Active [facility] Immunizations Immunization Date Given Site Status Last Updated Comments Source pneumococcal 13-valent vaccine 01/07/2017 Left Deltoid completed Hus[place] [facility] Results Order Name Results Value Reference Range Date Interpretation Comments Source ELECTROLYTES Sodium Lvl 138 135 - 145 01/06/[address] [facility] ELECTROLYTES Potassium Lvl 4.1 3.5 - 5.1 01/06/[address] [facility] HEMATOLOGY Hct 39.0 36.0 - 48.0 01/06/[address] [facility] HEMATOLOGY Hgb 12.8 12.0 - 16.0 01/06/[address] [facility] SPECIAL CHEMISTRY Hgb A1C 7.5 <=5.6 % 01/06/[address] [facility] Pathology Reports No Data Provided for This Section Diagnostic Reports Report Value Date Source Chest 2 views DX EXAM: Chest 2 views DX DATE: 07/08/2019 10:49 CDT. INDICATION: R07.89 Other chest pain. COMPARISON: None available. TECHNIQUE: PA and lateral chest radiographs. FINDINGS: Lines, Tubes and Hardware: None. Lungs and Pleura: No focal consolidation, pleural effusion, or pneumothorax is identified. 0.6 cm calcified granuloma about the peripheral right midlung. Minimal atelectasis about the peripheral left lung base. Heart and Mediastinum: The heart size is normal. There are atherosclerotic calcifications of the aortic arch. The descending thoracic aorta is mildly tortuous. Pulmonary vascularity is normal. Bones: No acute skeletal abnormality is identified. The bones appear demineralized. Multilevel degenerative changes of the spine are [id number]-mc-tfvoiurg in degree. IMPRESSION: 1. No acute abnormality. 2. Osteopenia/osteoporosis. 07/08/2019 [facility] Consultation Notes No Data Provided for This Section Discharge Summaries No Data Provided for This Section History and Physicals No Data Provided for This Section Vital Signs Vital Sign Value Date Comments Source Height 59 0 09/11/2018 Danica Najam Diastolic (mm Hg) 77 09/11/2018 Danica Najam Systolic (mm Hg) 139 09/11/2018 Danica Najam Weight 205.2 09/11/2018 Danica Najam Height 59 0 08/28/2018 Danica Najam Diastolic (mm Hg) 73 08/28/2018 Danica Najam Systolic (mm Hg) 150 08/28/2018 Danica Najam Weight 202 08/28/2018 Danica Najam Height 144.78 cm 08/14/2018 [facility] Heart Rate 75 08/14/2018 [facility] Systolic (mm Hg) 131 08/14/2018 [facility] Diastolic (mm Hg) 58 08/14/2018 [facility] Height 144.78 cm 08/14/2018 [facility] Systolic (mm Hg) 155 08/14/2018 [facility] Diastolic (mm Hg) 84 08/14/2018 [facility] Heart Rate 71 08/14/2018 [facility] Systolic (mm Hg) 105 01/07/[address] [facility] Diastolic (mm Hg) 64 01/07/[address] [facility] Heart Rate 78 01/07/[address] [facility] Respitory Rate 16 01/07/[address] [facility] Temperature Oral (F) 98.2 F 01/07/[address] [facility] Heart Rate 69 01/07/[address] [facility] Temperature Oral (F) 98.2 F 01/07/[address] [facility] Systolic (mm Hg) 114 01/07/[address] [facility] Diastolic (mm Hg) 72 01/07/[address] [facility] Respitory Rate 16 01/07/[address] [facility] Temperature Oral (F) 98.1 F 01/07/[address] [facility] Heart Rate 77 01/07/[address] [facility] Systolic (mm Hg) 117 01/07/[address] [facility] Diastolic (mm Hg) 66 01/07/[address] [facility] Respitory Rate 18 01/06/[address] [facility] Weight 96.818 01/05/[address] [facility] Height 121.92 cm 01/05/[address] [facility] BMI Calculated 65.13 01/05/[address] [facility] Encounters Location Location Details Encounter Type Encounter Number Reason For Visit Attending Provider ADM Date DC Date Status Source [facility] Day Surgery [id number] Sincere Fuentes 01/06/2017 01/07/2017 [facility] OP Therapy Patients [id number] Allison Thapa 08/14/2018 09/13/2018 [facility] Outpt Diag Services [id number] Allison Thapa 07/08/2019 07/09/2019 [facility] Procedures Procedure Code Date Perfomer Comments Source Anterior repair [id number] [facility] Appendectomy [id number] [facility] Hysterectomy<sup>1</sup> [id number] with bilat eral oophorectomy [facility] ,[facility] Vein procedure [id number] [facility] Assessment and Plan No Data Provided for This Section Plan of Care No Data Provided for This Section Social History Social History Date Source Social History TypeResponse Substance Abuse Use: None. Alcohol Never Smoking Status Never smoker; Exposure to Tobacco Smoke None; Cigarette Smoking Last 365 Days No; Reg Smoking Cessation Counseling No entered on: 01/06/17 01/05/2017 [facility] Social History TypeResponse Substance Abuse Use: None. Alcohol Never Smoking Status Never smoker; Exposure to Tobacco Smoke None; Cigarette Smoking Last 365 Days No; Reg Smoking Cessation Counseling No 01/05/[address] [facility] Social History TypeResponse Alcohol Never Substance Abuse Use: None. Smoking Status Never smoker; Exposure to Tobacco Smoke None; Cigarette Smoking Last 365 Days No; Reg Smoking Cessation Counseling No entered on: 01/06/17 01/05/2017 [facility] Family History No Data Provided for This Section Advance Directives No Data Provided for This Section Functional Status No Data Provided for This Section
--- OUTSIDE RECORDS SUMMARY | 2020-01-07 10:21 | XMS REPORT | Clinical Summary ---
Author Author [facility] ict Organization [facility] ict Address Unknown Phone Unavailable Care Team Providers Care Nanotechnology Engineering Technologist Name Role Phone PCP Unavailable Allergies Comments Active Allergy Reactions Severity Noted Date No Known Allergies 11/02/2011 Medications End Date Status Medication Sig Dispensed Refills Start Date Active ibuprofen (MOTRIN) 800 mg Take 1 tablet 60 tablet 1 tabletIndications: Foot by mouth 3 pain, Plantar fasciitis every 8 hours as needed for Pain. Label in Icelandic Active alendronate (FOSAMAX) 35 Take 1 tablet 12 tablet 3 mg tabletIndications: by mouth 4 Osteopenia weekly. Active OPTIVAR 0.05 % ophthalmic PONGA 1 GOTA 6 mL 1 solution EN CADA JILL 4 2 VECES DIARIAMENTE. Active gabapentin (NEURONTIN) Take 1 90 capsule 0 300 mg capsule by 4 capsuleIndications: mouth at Burning sensation of feet bedtime nightly. Active metFORMIN (GLUCOPHAGE-XR) Take 1 tablet 90 tablet 2 500 mg ER extended by mouth 4 release daily (with tabletIndications: breakfast). Diabetes mellitus Active blood glucose meter Use as 1 Kit 0 (PRECISION XTRA directed.. 4 GLUCOMETER)Indications: Diabetes mellitus, Diabetes mellitus, new onset Active blood glucose (PRECISION Use 3 times a 1 Box 3 XTRA TEST STRIPS) test weeks. 4 stripsIndications: Diabetes mellitus Active lancets 28 USE 3 VECES 100 Each 3 gaugeIndications: POR SEMANA 4 Diabetes mellitus Active hydrocortisone 2.5 % Apply to 20 g 0 10/16 topical creamIndications: affected area 4 Dermatitis 2 times daily. Active ergocalciferol (VITAMIN Take 1 12 capsule 0 D2) 50,000 unit capsule by 4 capsuleIndications: mouth weekly. Vitamin D deficiency Active Mometasone (NASONEX) 50 2 Sprays by 17 g 0 mcg/actuation nasal each nostril 4 sprayIndications: route daily. Post-Nasal Drip Active cetirizine (ZYRTEC) 10 mg Take 1 tablet 90 tablet 0 tabletIndications: by mouth 4 Encounter for medication daily. refill, Environmental allergies Active cyclobenzaprine Take 1 tablet 30 tablet 1 02/08/20 1 (FLEXERIL) 10 mg by mouth 4 tabletIndications: Back daily as pain, Encounter for needed for medication refill Muscle Spasms. Active piroxicam (FELDENE) 20 mg Take 1 30 capsule 1 capsuleIndications: Back capsule by 4 pain, Encounter for mouth daily. medication refill Active traMADol (ULTRAM) 50 mg Take 1 tablet 20 tablet 0 tabletIndications: DDD by mouth 4 (degenerative disc every 12 disease), lumbar hours as needed for Pain. Active lactulose (CONSTULOSE) 10 Take 30 ml by 480 mL 0 gram/15 mL oral mouth twice 4 solutionIndications: daily until Unspecified constipation bowel movement. Active omeprazole (PRILOSEC) 20 Take 1 30 capsule 0 1 mg delayed release capsule by 4 capsuleIndications: GERD mouth daily. (gastroesophageal reflux disease) Active simvastatin (ZOCOR) 40 mg Take 1 tablet 90 tablet 0 tabletIndications: HLD by mouth at 4 (hyperlipidemia) bedtime nightly. Active acetaminophen (TYLENOL) Take 1 tablet 30 tablet 0 500 mg tabletIndications: by mouth 8 Chronic midline thoracic every 6 hours back pain as needed for Pain. Active Problems Problem Noted Date Chronic midline thoracic back pain 09/10/2017 Diabetes mellitus, new onset 09/17/2013 Diabetes mellitus 09/17/2013 S/P colonoscopy with polypectomy 05/29/2013 Tubular adenoma 05/29/2013 Varicose veins 02/22/[address] scan, sigmoid colon 10/12/2012 BRBPR (bright red blood per rectum) 10/09/2012 Edema 09/21/2012 Ear pain 09/21/2012 Infective otitis externa, unspecified 09/21/2012 Aline infection of flexural skin 01/17/2012 Preventative health care 01/17/2012 S/P excision of lipoma 10/14/2011 Osteoarthritis of lumbar spine 08/08/2011 Exercise counseling 06/17/2011 Dietary counseling 06/17/2011 Lipoma of flank 05/25/2011 Obesity, Class III, BMI 40-49.9 (morbid obesity) 04/2011 Rectocele 03/17/2010 Vaginal atrophy 03/03/2009 Elevated blood pressure reading without diagnosis of hypertension 10/30/2007 Stool guaiac positive 08/30/2007 Personal history of noncompliance with medical treatm ent, presenting 06/22/2007 hazards to health Female stress incontinence 06/06/2007 Osteoporoses, postmenopausal GERD (gastroesophageal reflux disease) Hyperlipidemia Elevated CEA Elevated glucose Immunizations Name Administration Dates Next Due Influenza Vaccine 05/25/2011, 03/24/2010 PPV 23 Pneumococcal 03/18/2014 Polysaccaride Family History Medical History Relation Name Comments Diabetes Father Cancer Maternal Aunt maternal aunt stoma ch Heart Mother Hypertension Mother Hypothyroid Other self Relation Name Status Comments Father Alive Maternal Aunt Mother Alive Other Social History Date Tobacco Use Types Packs/Day Years Used Never Smoker Smokeless Tobacco: Never Used Drinks/Week oz/Week Comments Alcohol Use No Sex Assigned at Date Recorded Not on file Industry Job Start Date Occupation Not on file Not on file Not on file Travel End Travel History Travel Start No recent travel history available. Last Filed Vital Signs Not on file Plan of Treatment Health Maintenance Due Date Last Done Comments IMM Pneumococcal Age 65 2014 and Up Breast Cancer Scrn 08/13/2014 08/13/2013, (Yearly) 04/12/2012, 08/19/2010, Additional history exists DM HGBA1C (Yearly) 08/20/2014 08/20/2013, 08/14/2013, 01/07/2013, Additional history exists DM Microalbumin Urine 09/17/2014 09/17/2013 Scrn (Yearly) DM Retinal Exam (Yearly) 09/17/2014 09/17/2013, 09/17/2013 DM Foot Exam (Yearly) 10/16/2014 10/16/2013 Colonoscopy 5yr 05/03/2018 05/03/2013 (Previously completed - External) IMM Influenza Seasonal 01/23/2020 05/25/2011, Oct to June (>/= 19 yrs) 03/24/2010 Results Not on fileafter 01/06/2019 Insurance Type Payer Benefit Subscriber ID Effective Phone Address Plan / Dates Group [employer] [place] [employer] xxxxxxxx 2014-P [id number] [place] [address] [facility] xxxxxxxxx 2014-P [phone] [id number] [place] [address] Advance Directives Date Inactivated Comments Code Status Date Activated 05/05/2010 5:29 PM Full Code 05/03/2010 2:36 PM
[2020-01-07 12:40] VITALS: BP 118/58
[2020-01-07] MEDS ORDERED: LIDOCAINE 2%/ EPINEPHRINE 20ML MDV ONE (12:53)
[2020-01-07] MEDS ORDERED: ROPIVACAINE 0.5% 5 MG/ML 30 ML SDV ONE (12:53)
[2020-01-07] MEDS ORDERED: MIDAZOLAM HCL 2 MG/2 ML VIAL ONE (13:50)
[2020-01-07] MEDS ORDERED: ACETAMINOPHEN 1000 MG/100 ML IV PRN (14:00)
--- NOTE | 2020-01-07 14:28 | NUR ---
DR SINGH OFFICE PREARRANGED FOLLOWING DISCHARGE PLAN OF: HOME WITH DAUGHTER [id number] SPENCER, [facility] CONFIRMED WITH [facility] [phone] DME 3 IN ONE COMMODE, CPM AND ROLLING WALKER WITH WHEELS. PROVIDED BY [facility] [employer] [place] VIA EMAIL KIEL SIGNED AND ON CHART COPY LEFT WITH PATIENT GAVE CARD FOR QUESTIONS AND OR CONCERNS.
[2020-01-07 16:05] VITALS: BP 131/60
[2020-01-07] MEDS: CELECOXIB 100 MG CAP PO SCH (17:15)
[2020-01-07] MEDS: CEFAZOLIN SOD 1 GM/NS 50ML 50 ML IV SCH (17:15)
[2020-01-07] MEDS: ASPIRIN 325 MG TAB PO SCH (17:15)
[2020-01-07] MEDS ORDERED: ONDANSETRON HCL INJ 2MG/ML 2ML 2 MG/ML VIAL ONE (17:22)
[2020-01-07] MEDS ORDERED: PROPOFOL IV EMULSION 10 MG/ML 20 ML VIAL ONE (17:22)
[2020-01-07] MEDS ORDERED: SEVOFLURANE INHAL SOLN 250 ML PEN BTL ONE (17:22)
[2020-01-07] MEDS ORDERED: LIDOCAINE HCL 2% LOCAL INJ 5 ML SDV VIAL INJ ONE (17:22)
[2020-01-07] MEDS ORDERED: DEXAMETHASONE SOD PHOS INJ 4 MG/ML VIAL ONE (17:22)
[2020-01-07] MEDS ORDERED: KETOROLAC TROMETHAMINE 30 MG/ML VIAL ONE (17:22)
--- NOTE | 2020-01-07 19:30 | NUR ---
bedside shift report received from day rn. dressing to left knee dry and intct. pt tolerating po well. Pt voiding without difficulty.
[2020-01-07 20:00] VITALS: BP 137/61
[2020-01-07] MEDS: HYDROCODONE/APAP 5MG-325MG TAB PO PRN (20:24)
[2020-01-07] MEDS ORDERED: ZOLPIDEM TARTRATE 5 MG TAB PO PRN (21:00)
[2020-01-08] VITALS: BP 137/67
[2020-01-08] MEDS: CEFAZOLIN SOD 1 GM/NS 50ML 50 ML IV SCH ×2 (00:35→09:32)
[2020-01-08 04:00] VITALS: BP 132/60
[2020-01-08 04:45] LABS: HEMATOCRIT 40.2 % (34.2-44.1); HEMOGLOBIN 12.7 g/dL (12.0-16.0)
[2020-01-08] MEDS: HYDROCODONE/APAP 5MG-325MG TAB PO PRN (04:53)
[2020-01-08] MEDS: SODIUM CHLORIDE 0.9% 1000ML 1,000 ML IV SCH (05:15)
--- NOTE | 2020-01-08 05:50 | Consultation ---
DATE OF CONSULTATION: REASON FOR CONSULTATION: Postop medical management. HISTORY OF PRESENT ILLNESS: The patient is a 69-year-old lady, status post left total knee arthroplasty. She does complain of some left knee pain that is mild. REVIEW OF SYSTEMS: Denies any fever, chills, nausea, vomiting, headache, shortness of breath, or dizziness. PAST MEDICAL HISTORY: Significant for hypertension, hyperlipidemia, irritable bowel syndrome with constipation, osteoarthritis. MEDICATIONS: See MAR. ALLERGIES: MORPHINE. SOCIAL HISTORY: Nonsmoker. . Nondrinker. FAMILY HISTORY: Diabetes and heart disease. PHYSICAL EXAMINATION: VITAL SIGNS: Temperature 98.1, pulse 70, blood pressure 137/67, saturations 93% on room air. GENERAL: No apparent distress, lying in bed. NECK: Supple. CARDIOVASCULAR: Regular rate and rhythm. LUNGS: Clear to auscultation bilaterally. ABDOMEN: Good bowel sounds. Soft, nontender. EXTREMITIES: No clubbing or cyanosis. The left knee shows no seepage. NEUROLOGIC: Nonfocal. ASSESSMENT AND PLAN: 1. Left knee pain, status post left knee arthroplasty. Continue Physical therapy and continue with pain control. 2. Anemia. Check CBC. 3. Diabetes. Continue to monitor fingersticks. 4. Hyperlipidemia. Continue with her cholesterol medicines at discharge. Please see hospital chart for details. MD PUNEET Gilliam/KATE /[id number]
[2020-01-08 07:26] VITALS: BP 126/62
[2020-01-08] MEDS: ASPIRIN 325 MG TAB PO SCH ×2 (09:32→16:33)
[2020-01-08] MEDS: HYDROCODONE/APAP 7.5MG-325MG 1 EA TAB PO PRN ×2 (09:32→15:31)
[2020-01-08] MEDS: CELECOXIB 100 MG CAP PO SCH (09:32)
[2020-01-08 09:48] VITALS: BP 126/62
[2020-01-08 11:23] VITALS: BP 132/67
[2020-01-08] MEDS ORDERED: ONDANSETRON HCL 4 MG ORAL DISINTEGRATING TAB PO PRN (13:00)
[2020-01-08] MEDS ORDERED: ACETAMINOPHEN 325 MG TAB PO PRN (13:00)
[2020-01-08 15:34] VITALS: BP 156/63
[2020-01-08] MEDS ORDERED: CELECOXIB 200 MG CAP PO SCH (17:00)
== END 2020-01-08 18:55 | disposition home health service (06) ==
LOC: OR 05:48 → PACU V 09:12 → MED/SURG 12:30
PROVIDERS: ADMIT Specialist; ATTEND Specialist
DX: M17.0 Bilateral primary osteoarthritis of knee (principal); E66.01 Morbid (severe) obesity due to excess calories; E11.9 Type 2 diabetes mellitus without complications; E78.00 Pure hypercholesterolemia, unspecified; Z68.41 Body mass index [BMI] 40.0-44.9, adult; Z83.3 Family history of diabetes mellitus; Z82.49 Family history of ischemic heart disease and other diseases of the circulatory system; D64.9 Anemia, unspecified; E78.5 Hyperlipidemia, unspecified; Z88.5 Allergy status to narcotic agent; I10 Essential (primary) hypertension; Z11.59 Encounter for screening for other viral diseases
CPT/HCPCS: 27447; 36415 ×3; 71046; 73560; 80048; 82948; 85014; 85018; 85025; 86850; 86900; 86920; 97116 ×2; 97139; 97161; 97530; C1713; G0378 ×2; J0171; J0690 ×2; J1100 ×2; J1885 ×2; J2001; J2405 ×2; J2704; J2795; J3010; J3370; J7040; U0002; J2250

== ENCOUNTER 2024-12-13 10:44 | Emergency (ER) | payer MEDICARE, OTHER ==
[~2024-12-13] VITALS: Ht 157.5 cm; Wt 90.7 kg
[~2024-12-13 10:44] MED LIST changes: +GLIPIZIDE5 MG PO; +GLUCOTROL XL10 MG PO; +JARDIANCE25 MG PO; +LISINOPRIL5 MG PO; +MECLIZINE HCL12.5 MG PO; +OMEPRAZOLE40 MG PO; +ZESTRIL2.5 MG PO
[2024-12-13 11:04] VITALS: PULSE 67; RESP 18; TEMP 98.4; O2SAT 97
[2024-12-13] MEDS ORDERED: KETOROLAC TROME10 MG PO (12:18)
[2024-12-13] MEDS: KETOROLAC TROMETHAMINE 30 MG/ML VIAL IM STA (12:33)
[2024-12-13 12:36] VITALS: BP 153/73; PULSE 64; RESP 17
== END 2024-12-13 12:38 | disposition home or self-care (01) ==
LOC: ER 10:53
DX: M25.561 Pain in right knee (principal); I10 Essential (primary) hypertension; E11.9 Type 2 diabetes mellitus without complications; Z96.651 Presence of right artificial knee joint
CPT/HCPCS: 73562; 99283; J1885